=== PATIENT | female | born 1960 | race Caucasian/White ===

== ENCOUNTER 2016-11-30 06:44 | Emergency (ER) ==
[2016-11-30 06:59] VITALS: BP 116/75
[2016-11-30] MEDS ORDERED: TORADOL IM ONE (07:11)
[2016-11-30] MEDS ORDERED: ZOFRAN ODT PO ONE (09:06)
[2016-11-30] MEDS ORDERED: DECADRON IM ONE (09:06)
[2016-11-30] MEDS ORDERED: PERCOCET-10 PO ONE (09:06)
--- NOTE | 2016-11-30 09:07 | PROVIDER DOCUMENTATION ---
HPI-Musculoskeletal Pain/Inj - GENERAL Chief Complaint: Back Pain Stated Complaint: LOWER BACK PAIN Time Seen by Provider: 11/30/16 07:03 Source: patient - HX OF PRESENT ILLNESS-MUSKULOSKELTAL Nature of Presenting Problem: Pt is 56 y/o F presents to the ED with lumbar back pain. Pt states being diagnosed with chronic back pain 7 years ago but today it is worse. Pt denies injury. Pt denies F/C. Quality of Pain: reports: aching Severity in ED: moderate Onset/Duration: this morning Timing: still present, constant, getting worse Modifying Factors: improves with: nothing Any recent injury?: No Locality of Occurance: Home Similar Symptoms Previously?: Yes Recently seen or treated by another doctor?: Yes - FALL INJURY Location of Pain/Injury: reports: none Symptoms prior to fall:: reports: none Loss of Consciousness: no loss of consciousness Injury Associated Symptoms: reports: back/neck pain (back). denies: arm pain, chest pain, diaphoresis, dizziness, headaches, joint pain, muscle aches, nausea , puncture wound, shortness of breath, sensory/motor loss, snap/crack/pop sensation, pain with inspiration, unable to bear weight, vomiting, weakness, trouble walking - BACK & NECK PAIN/INJURY Back/Neck Pain Location: reports: lumbar spine Back/Neck Pain Radiation: reports: Buttocks, Upper Legs Context / Method of Injury: reports: other (chronic back pain) Associated Symptoms: reports: lower back pain, muscle spasms (Lumbar). denies: loss of bladder control, loss of bowel control, fever, numbness in legs/feet, numbness in upper ext, sensory/motor loss, tingling in legs/feet, tingling in upper ext, weakness in legs/feet, weakness in upper ext History of Chronic Neck or Back Pain?: Yes (7 years ) - LOWER EXTREMITY PAIN/INJURY Lower Extremities Pain: thigh: bilateral (pain) Context / Method of Injury: reports: other (chronic pain) Associated Symptoms: reports: lower back pain, muscle spasms. denies: loss of bladder control, loss of bowel control, numbness in legs/feet, sensory/motor loss, tingling in legs/feet, weakness in legs/feet Review of Systems - Adult - REVIEW OF SYSTEMS - ADULT Constitutional: denies: chills, fever Eyes: denies: blurred vision, double vision Ears, Nose, Mouth & Throat: denies: ear pain, nose pain, throat pain Cardiovascular: denies: chest pain, heart murmur, irregular heart rate Respiratory: denies: cough, shortness of breath, wheezing Gastrointestinal: denies: abdominal pain, diarrhea, nausea, poor appetite, vomiting Genitourinary: denies: dysuria, hematuria Musculoskeletal: reports: back pain. denies: bone pain, joint pain, neck pain Integumentary: denies: hives, itching Neurological: denies: dizziness/vertigo, headache/migraines Psychiatric: reports: no symptoms reported Endocrine: reports: no symptoms reported Hematologic/Lymphatic: reports: no symptoms reported Allergic/Immunologic: reports: no symptoms reported All Other Systems: Reviewed and Negative Past History - Adult - PAST MEDICAL HISTORY-ADULT Review of Records: reports: Nursing Assessment Review, Medications Reviewed, Social history reviewed & non-contributory. Major Childhood Illnesses: reports: denies history Cardiovascular: reports: angina, HTN, hyperlipidemia Respiratory: reports: COPD, sleep apnea Gastrointestinal: reports: GERD Obstetrical/Gynecological: reports: denies history Genitourinary: reports: denies history Musculoskeletal: reports: denies history Neurological: reports: denies history Psychiatric: reports: anxiety Endocrine/Immune: reports: denies history Other Conditions: reports: denies history - PRIOR SURGERIES/PROCEDURES Surgical/Procedure History: reports: cholecystectomy, tonsillectomy - PRIOR HOSPITALIZATIONS Prior Hospitalizations: reports: for similar symptoms - FAMILY HISTORY Family History: reviewed, not pertinent - SOCIAL HISTORY Smoking: denies Substance Use: alcohol Alcohol Use Frequency: rarely Number of drinks per typical drinking period:: 3-4 drinks Living Situation: family Physical Exam-Injury Related - Physical Exam-Injury Related General Appearance: alert, no apparent distress. negative: appears well (ill appearance) Eyes: PERRL/EOMI, pink conjunctivae Head, Ears, Nose, Mouth & Throat: normocephalic/atraumatic, normal ENT inspection, TMs normal, pharynx normal Neck: non-tender, full range of motion, supple, normal inspection Respiratory: chest non-tender, lungs clear, normal breath sounds, no pleuratic chest pain, no respiratory distress, no accessory muscle use Cardiovascular: normal peripheral pulses, regular rate, rhythm, no edema, no gallop, no JVD, no murmur Abdominal Exam: normal bowel sounds, non tender, soft, no organomegaly, no pulsatile mass Lymphatic: no adenopathy Back Exam: no CVA tenderness, no vertebral tenderness, decreased range of motion , muscle spasm (lumbar) Extremity: normal range of motion, non-tender, normal gait, normal inspection, no pedal edema, no calf tenderness, normal capillary refill, pelvis stable Integumentary: normal color, warm/dry Neurologic: superintendent maintenance II-XII nml as tested, grossly normal, no motor/sensory deficits Psych/Mental Status: AL, normal mood/affect, normal thought content, normal thought process, oriented x 3 Progress - PLAN OF CARE/RESULTS Progress/Plan/Lab Results: Orders Category Date Time Status CHEST-2 VIEWS [RAD] Stat Exams 11/30/16 07:11 Taken LUMBAR SPINE [RAD] Stat Exams 11/30/16 07:10 Taken URINALYSIS [URINALYSIS] Stat Lab 11/30/16 09:09 Ordered URINE DRUG SCREEN Stat Lab 11/30/16 09:09 Ordered Dexamethasone [Decadron] Med 11/30/16 09:06 Discontinued 10 mg IM NOW ONE Ketorolac [Toradol] Med 11/30/16 07:11 Discontinued 60 mg IM NOW ONE Ondansetron Odt [Zofran Odt] Med 11/30/16 09:06 Discontinued 4 mg PO NOW ONE Oxycodone/APAP 10 mg/325 mg [Percocet-10] Med 11/30/16 09:06 Discontinued 1 each PO NOW ONE Vital Signs - 24 hr 11/30/16 06:57 Temperature 97.3 F L Pulse Rate 75 Respiratory 12 Rate Blood Pressure 116/75 O2 Sat by Pulse 100 Oximetry - XRAY 1 XRAY: Bilateral XRAY Study: Chest Impression: Normal XRAY Interpretation: stable 2 XRAY: Bilateral XRAY Study: Lumbar Spine Impression: Normal XRAY Interpretation: NAD Departure - Departure Time of Disposition Order: 09:11 DIAGNOSIS: Acute back pain Qualifiers: Back pain location: low back pain Back pain laterality: midline Sciatica presence: without sciatica Qualified Code(s): M54.5 - Low back pain Lumbar strain Qualifiers: Encounter type: initial encounter Qualified Code(s): S39.012A - Strain of muscle, fascia and tendon of lower back, initial encounter Disposition: HOME 01 Certified Medical Emergency: Emergent Condition: Stable Additional Instructions: ED Follow Up Instructions: You have been treated by a care provider in the Emergency Department. These instructions are being provided to you so you can have an understanding of how to care for yourself upon discharge. Upon discharge from the Emergency Department, you are responsible for making arrangements for follow-up care by a physician of your choice. Take all prescribed medications as directed. Return to the Emergency Department immediately for any new or worsening symptoms. You may call the Physician Referral phone number at [phone] to obtain a list of Physicians who are taking new patients. Prescriptions: Oxycodone HCl/Acetaminophen [Percocet 7.5-325 mg Tablet] 1 each PO TID PRN PRN # 20 tablet PRN Reason: Pain Methocarbamol [Robaxin-750] 750 mg PO TID #30 tablet Tramadol [Ultram] 50 mg PO TID PRN PRN #60 tablet PRN Reason: Pain Ondansetron [Zofran Odt] 4 mg SL 4XDAY PRN PRN #14 tab.rapdis PRN Reason: Nausea And Vomiting Referrals: Devin Singleton MD [Primary Care Provider] - Justina Alexis MD [STAFF PHYSICIAN] - Forms: Return to School/Parent Work Attestation - Scribe Verification/Attestation Scribe:: Shaina Harkins Acting as Scribe for:: Hilario Carver Scribe documention review:: This chart was documented by a scribe and accurately reflects the service the provider performed and the decisions made by the provider.
[2016-11-30 09:15] LABS: URINE MICRO REVIEW NEEDED? NO; URINE SOURCE VOIDED
[2016-11-30 09:26] LABS: BILIRUBIN URINE NEGATIVE (NEGATIVE); BLOOD URINE NEGATIVE (NEGATIVE); COLOR YELLOW; GLUCOSE URINE NEGATIVE (NEGATIVE); LEUKOCYTES URINE NEGATIVE (NEGATIVE); NITRITE URINE NEGATIVE (NEGATIVE); PH URINE 5.5; PROTEIN URINE NEGATIVE (NEGATIVE); SP GRAVITY URINE 1.006; TURBIDITY URINE CLEAR (CLEAR); UROBILINOGEN URINE NORMAL (NORMAL)
[2016-11-30 09:27] LABS: UR EPITHELIAL CELLS <10 /HPF (<10); URINE BACTERIA NEGATIVE /HPF; URINE RBC <10 /HPF (<10); URINE WBC <10 /HPF (<10)
--- NOTE | 2016-11-30 09:28 | Diag Imaging Result Document ---
PROCEDURE NAME: LUMBAR SPINE - 11/30/2016 LUMBOSACRAL SPINE SERIES WITH OBLIQUES, SIX VIEWS: FINDINGS: The pedicles are intact. There are surgical clips in the gallbladder fossa. There is generalized osteopenia. There is no evidence of acute fracture or subluxation and the disc spaces are fairly well maintained. IMPRESSION: No evidence of acute bony disease.
[2016-11-30 09:32] LABS: UR AMPHETAMINES QUAL NONE DETECTED (NONE DETECT); UR BARBITUATES QUAL NONE DETECTED (NONE DETECT); UR BENZODIAZEPIN QUAL NONE DETECTED (NONE DETECT); UR CANNABINOIDS QUAL NONE DETECTED (NONE DETECT); UR COCAINE QUAL NONE DETECTED (NONE DETECT); UR METHADONE QUAL NONE DETECTED (NONE DETECT); UR OPIATES QUAL NONE DETECTED (NONE DETECT); UR OXYCODONE QUAL NONE DETECTED (NONE DETECT); UR PCP QUAL NONE DETECTED (NONE DETECT)
--- NOTE | 2016-11-30 10:27 | Diag Imaging Result Document ---
PROCEDURE NAME: CHEST-2 VIEWS - 11/30/2016 TWO VIEWS OF THE CHEST: FINDINGS: There is cardiomegaly. Compared to 09/09/2016, there has been no significant change in the appearance of the chest. IMPRESSION: Stable chest.
== END 2016-11-30 09:52 | disposition home or self-care (01) ==
LOC: ED 06:44
DX: S39.012A Strain of muscle, fascia and tendon of lower back, initial encounter (principal); M54.5 Low back pain; G89.29 Other chronic pain; M79.1 Myalgia; M79.605 Pain in left leg; M79.604 Pain in right leg; M62.830 Muscle spasm of back; I10 Essential (primary) hypertension; E78.5 Hyperlipidemia, unspecified; J44.9 Chronic obstructive pulmonary disease, unspecified; K21.9 Gastro-esophageal reflux disease without esophagitis; F41.9 Anxiety disorder, unspecified; Z79.899 Other long term (current) drug therapy; Z79.82 Long term (current) use of aspirin
CPT/HCPCS: 71020; 72110; 81001; 96372; G0480; J1885

== ENCOUNTER 2019-03-01 11:35 | Inpatient (IN) ==
[2019-03-01] MEDS ORDERED: NS 1,000 ML IV ONE (11:54)
[2019-03-01] MEDS ORDERED: VANCOMYCIN 1 GM/NS 1 GM/250 ML IVPB IV ONE (12:22)
[2019-03-01] MEDS ORDERED: ZOSYN 3.375 GM in NS 50 ML IV ONE (12:22)
[2019-03-01 12:29] LABS: ALLEN TEST NO; BE 2.7 mmoll (-3.0-3.0); BLOOD TYPE ARTERIAL; HCO3-(ACT) 26.9 mmoll (20.0-26.0); METHB 1.2 % (0.0-1.5); O2(CT) 18.1 mL/dL (15.0-23.0); O2HB 93.6 % (95.0-99.0); PCO2(98.6) 36 mmHg (35-45); PO2(98.6) 80 mmHg (60-100); SAMPLE BLOOD; SAO2 96.8 % (95.0-100.0); THB 13.7 g/dL (11.5-17.4); pH(98.6) 7.47 (7.35-7.45)
[2019-03-01 12:37] LABS: URINE SOURCE CATH
[2019-03-01 12:49] LABS: UR AMPHETAMINES QUAL NONE DETECTED (NONE DETECT); UR BARBITUATES QUAL NONE DETECTED (NONE DETECT); UR BENZODIAZEPIN QUAL NONE DETECTED (NONE DETECT); UR CANNABINOIDS QUAL NONE DETECTED (NONE DETECT); UR COCAINE QUAL NONE DETECTED (NONE DETECT); UR METHADONE QUAL NONE DETECTED (NONE DETECT); UR OPIATES QUAL NONE DETECTED (NONE DETECT); UR OXYCODONE QUAL NONE DETECTED (NONE DETECT); UR PCP QUAL NONE DETECTED (NONE DETECT)
[2019-03-01 12:52] LABS: BILIRUBIN URINE NEGATIVE (NEGATIVE); BLOOD URINE NEGATIVE (NEGATIVE); COLOR YELLOW; GLUCOSE URINE NEGATIVE (NEGATIVE); KETONE URINE 10 mg/dL (NEGATIVE); LEUKOCYTES URINE NEGATIVE (NEGATIVE); NITRITE URINE NEGATIVE (NEGATIVE); PH URINE 8.5; PROTEIN URINE TRACE mg/dL (NEGATIVE); SP GRAVITY URINE 1.011; TURBIDITY URINE CLEAR (CLEAR); UROBILINOGEN URINE NORMAL (NORMAL)
[2019-03-01 12:53] LABS: UR EPITHELIAL CELLS <10 /HPF (<10); URINE BACTERIA NEGATIVE /HPF; URINE RBC <10 /HPF (<10); URINE WBC <10 /HPF (<10)
[2019-03-01 12:57] LABS: AGAP 11; ALB/GLOB RATIO 1.8; ALBUMIN 4.1 g/dL (3.5-5.0); ALKALINE PHOSPHATASE 105 U/L (32-104); BUN 11 mg/dL (8-22); CALCIUM 8.9 mg/dL (8.8-10.2); CHLORIDE 96 mmol/L (98-107); COSMO 271; CREATININE 0.8 mg/dL (0.5-0.9); ESTIMATED GFR > 60; GLUCOSE 193 mg/dL (70-104); GOT 18 U/L (10-30); GPT 16 U/L (10-36); MAGNESIUM 1.7 mg/dL (1.5-2.7); SODIUM 133 mmol/L (136-145); TCO2 26 mmol/L (25-35); TOTAL BILIRUBIN 0.48 mg/dL (0.20-1.00); TOTAL PROTEIN 6.4 g/dL (6.3-8.3)
--- NOTE | 2019-03-01 12:57 | EKG Report ---
Test Performed on : 03/01/2019 11:46:27 AM Test Reason : CP Blood Pressure : / mmHG Vent. Rate : 101 BPM Atrial Rate : 101 BPM P-R Int : 152 ms QRS Dur : 070 ms QT Int : 354 ms P-R-T Axes : 049 023 035 degrees QTc Int : 459 ms Sinus tachycardia. Nonspecific ST and T wave abnormality Abnormal ECG When compared with ECG of 09-SEP-2016 07:10, T wave inversion now evident in Lateral leads Unconfirmed Result
[2019-03-01 13:02] LABS: BASO# 0.02 X1000 (0.0-0.2); BASO% 0.2 % (0.0-0.8); EOS# 0.03 X1000 (0.0-0.7); EOS% 0.2 % (0.0-10.0); HEMATOCRIT 39.4 % (37.0-47.0); HEMOGLOBIN 13.4 g/dL (12.0-16.0); IMM GRAN# 0.07 X1000 (0.0-0.04); IMM GRAN% 0.6 % (0.0-0.5); LYMPH# 1.07 X1000 (1.2-3.4); LYMPH% 8.5 % (20.5-51.1); MCH 32.1 PG (27-31); MCV 94.5 FL (81-99); MONO# 0.55 X1000 (0.11-0.59); MONO% 4.4 % (1.7-9.3); MPV 10.9 FL (7.4-10.4); NEUT# 10.82 X1000 (1.4-6.5); NEUT% 86.1 % (42.2-75.2); PLT 172 X1000 (130-400); RBC 4.17 XMIL (4.2-5.4); RDW 13.7 % (11.5-14.5); WBC 12.56 X1000 (4.8-10.8)
[2019-03-01 13:04] LABS: CK PROFILE 255 U/L (24-173)
[2019-03-01 13:14] LABS: INR 1.11; PROTIME 15.2 Seconds (11.0-16.0); PTT 27.6 Seconds (22.3-41.8)
--- NOTE | 2019-03-01 13:16 | Diag Imaging Result Doc PS360 ---
EXAM: CHEST-1 VIEW 03/01/2019 HISTORY: sob fever TECHNIQUE: AP portable at 1244 COMMENT: There is cardiomegaly. The inspiration is less optimal than on 04/19/2018. The possibility of atelectasis or pneumonia in the left lower lobe cannot be excluded. IMPRESSION: Cardiomegaly. Questionable left lower lobe opacity. Electronically signed by Bobby Bryson 03/01/2019 1:14 PM
[2019-03-01] MEDS ORDERED: LASIX IV ONE (13:17)
[2019-03-01 13:21] LABS: CK INDEX 1.1 (0.0-2.5); CK-MB 2.77 ng/mL (0.0-5.0)
[2019-03-01 13:23] LABS: LYMPHS 8 % (21-51); MONO 3 % (1-9); SEGS 89 % (42-75)
[2019-03-01 13:44] LABS: MODALITY CANNULA
--- NOTE | 2019-03-01 14:28 | Diag Imaging Result Doc PS360 ---
EXAM: CT ABD/PELVIS W/IV CONT ONLY 03/01/2019 HISTORY: abd pain TECHNIQUE: This exam was performed using automated exposure control, adjustment of mA or kV according to patient size, and/or use of iterative reconstruction technique. COMMENT: There is ill-defined opacity in the posterior costophrenic sulcus of the right lower lobe which was not present on 10/23/2014 and may represent atelectasis. The liver is hypodense suggesting fatty change as it was on the previous study. There has been cholecystectomy. There is no evidence of nephrolithiasis or hydronephrosis. The aorta is not distended. There are atherosclerotic calcifications in the aorta and also in the ostial portion of the left renal artery. The mesenteric and renal arteries are otherwise patent. The adrenal glands are not enlarged. The pancreas is normal in appearance. There is stool in the colon. The stomach and small bowel are not distended. Pelvis: The appendix is normal in appearance. There are no masses and there is no evidence of significant adenopathy. There are no abnormal fluid collections. There is a Perry catheter in the bladder. The regional skeleton appears to be intact. IMPRESSION: Mild constipation. Right lower lobe atelectasis. Hepatic steatosis. Electronically signed by Bobby Bryson 03/01/2019 2:25 PM
[2019-03-01] MEDS ORDERED: TYLENOL PO PRN (14:36)
[2019-03-01] MEDS ORDERED: VANCOMYCIN IV PER PHARMACY MISC SCH (14:36)
[2019-03-01] MEDS ORDERED: NS 1,000 ML IV SCH (14:36)
--- NOTE | 2019-03-01 14:40 | PROVIDER DOCUMENTATION ---
This chart was entered by Debbie Lombardo Scribe, acting as scribe for Rimma Carrillo CRNP. HPI-Respiratory General - General Chief Complaint: Altered Mental Status Stated Complaint: ams Time Seen by Provider: 03/01/19 11:41 Source: patient, family (at bedside), EMS (first response) Allergies/Adverse Reactions: Patient Allergies Allergy/AdvReac Type Severity Reaction Status Date / Time erythromycin base Allergy Severe RASH, SOB Verified 03/01/19 12:29 adhesive tape Allergy Unknown Verified 03/01/19 12:29 Home Medications: Home Medication List Medication Instructions Recorded Confirmed Last Taken Type Spironolactone 25 mg PO QAM 12/03/14 03/01/19 02/17/17 06:15 History Aspirin 81 mg PO QAM 08/20/15 03/01/19 02/17/17 06:15 History Carvedilol [Coreg] 12.5 mg PO BID 08/20/15 03/01/19 02/17/17 06:15 History Nitroglycerin [Nitroglycerin 0.4 mg SL DIRECTED PRN 08/20/15 03/01/19 Unknown History Lingual [place]] Multivit-Min/FA/Lycopen/Lutein 1 each PO QPM 02/15/17 03/01/19 02/16/17 18:00 History [Centrum Silver Tablet] Metolazone 5 mg PO DAILY PRN 04/19/18 03/01/19 Unknown History Magnesium 250 mg PO QPM 06/07/18 03/01/19 Unknown History Torsemide [Demadex] 40 mg PO BID 06/07/18 03/01/19 Unknown History Sertraline HCl [Zoloft] 100 mg PO DAILY 07/10/18 03/01/19 Unknown History Glipizide [Glipizide Xl] 5 mg PO QAM 03/01/19 03/01/19 Unknown History Lidocaine 5% Patch [Lidoderm] 1 ea TOP BID 03/01/19 03/01/19 Unknown History Potassium Chloride 10 meq PO EVERY OTHER DAY 03/01/19 03/01/19 Unknown History Rosuvastatin Calcium [Crestor] 40 mg PO QPM 03/01/19 03/01/19 Unknown History Tizanidine [Zanaflex] 4 mg PO Q8HR 03/01/19 03/01/19 Unknown History Trazodone [Desyrel] 300 mg PO QHS 03/01/19 03/01/19 Unknown History - History of Present Illness-Resp Nature of Presenting Problem: 58 yof presents to the ed via ems per family calling 911. pt has been agitated with ams per family for 3 days. pt is currently on abx (Levaquin) for pneumonia. pt was given ketamine enroute by ems Quality of Pain: reports: none Severity in ED: reports: moderate Onset/Duration: reports: 3 days ago Timing: reports: still present, intermittent, getting worse Context: reports: other (recent pneumonia) Cough Quality/Degree: reports: no cough Current Respiratory Medication Therapy: Initiated see nurses note Modifying Factors: improves with: nothing, oxygen. worse with: exertion Associated Symptoms: reports: hyperventilating (24), shortness of breath. denies: chest pain/soreness, dizziness, fever/chills, wheezing Similar Symptoms Previously?: Yes Recently seen or treated by another doctor?: Yes (was recently d/c from hosp) Review of Systems - Adult - REVIEW OF SYSTEMS - ADULT ROS:: ROS per family Constitutional: denies: chills, fever Eyes: reports: no symptoms reported Ears, Nose, Mouth & Throat: reports: no symptoms reported Cardiovascular: denies: chest pain, palpitations, syncope Respiratory: reports: see HPI, shortness of breath. denies: wheezing Gastrointestinal: denies: abdominal pain, diarrhea, nausea, vomiting Genitourinary: reports: no symptoms reported Musculoskeletal: denies: back pain, neck pain Integumentary: reports: no symptoms reported Neurological: reports: no symptoms reported Psychiatric: reports: see HPI, other (has ams with family) Endocrine: reports: no symptoms reported Hematologic/Lymphatic: reports: no symptoms reported Allergic/Immunologic: reports: no symptoms reported All Other Systems: Reviewed and Negative Past History - Adult - PAST MEDICAL HISTORY-ADULT Review of Records: reports: Nursing Assessment Review, Medications Reviewed Major Childhood Illnesses: reports: denies history Cardiovascular: reports: angina, CHF, HTN, hyperlipidemia Respiratory: reports: COPD, pneumonia, sleep apnea Gastrointestinal: reports: GERD Obstetrical/Gynecological: reports: denies history Genitourinary: reports: denies history Musculoskeletal: reports: denies history Neurological: reports: denies history Psychiatric: reports: anxiety Endocrine/Immune: reports: denies history Other Conditions: reports: denies history - PRIOR SURGERIES/PROCEDURES Surgical/Procedure History: reports: cholecystectomy, tonsillectomy - PRIOR HOSPITALIZATIONS Prior Hospitalizations: reports: for similar symptoms - IMMUNIZATION STATUS Childhood Immunizations: See Nurse Assessment Flu Vaccine: See Nurse Assessment - FAMILY HISTORY Family History: reviewed, not pertinent - SOCIAL HISTORY Smoking: quit greater than 1 year Substance Use: denies Alcohol Use Frequency: never Living Situation: family Physical Exam-General - PHYSICAL EXAM-ADULT Exam Limited by: pt is ams and lethargic and can not answer questions Initial Vital Signs Reviewed: Yes - CONSTITUTIONAL General Appearance: no apparent distress, lethargic, slow to respond - EYES Eyes: pink conjunctivae - HEAD, EARS, NOSE, MOUTH & THROAT HENMT: moist mucous membranes, normal ENT inspection - NECK Neck: full range of motion, supple, normal inspection - RESPIRATORY Respiratory: chest non-tender, respiratory distress, decreased breath sounds, other (90% on 2LPM recent dx of pneumonia and on abx). negative: wheezing - CARDIOVASCULAR Cardiovascular: normal peripheral pulses, tachycardia (121) - GASTROINTESTINAL (ABDOMEN) Abdominal Exam: normal bowel sounds, non tender, soft - LYMPHATIC Lymphatic: no adenopathy - MUSCULOSKELETAL Back Exam: normal inspection Extremity: no calf tenderness, pelvis stable - SKIN Integumentary: warm/dry, pallor - PSYCHIATRIC Psych/Mental Status: disoriented x 3, other (lethargic) Progress - PLAN OF CARE/RESULTS Progress/Plan/Lab Results: Vital Signs - 8 hr 03/01/19 11:57 03/01/19 12:01 03/01/19 12:19 Temperature 101.2 F H Pulse Rate 100 H 101 H 103 H Respiratory Rate 20 23 28 H Blood Pressure 153/100 153/99 153/100 O2 Sat by Pulse Oximetry 95 95 91 L 03/01/19 12:31 03/01/19 13:01 03/01/19 13:31 Temperature Pulse Rate 95 H 105 H 104 H Respiratory Rate 21 28 H 28 H Blood Pressure 108/84 145/91 118/103 O2 Sat by Pulse Oximetry 96 97 96 03/01/19 13:48 Temperature Pulse Rate Respiratory Rate Blood Pressure O2 Sat by Pulse Oximetry 98 03/01/19 12:24 Influenza Screen - Final Nasopharyngeal Laboratory Results - last 24 hr 03/01/19 03/01/19 03/01/19 11:55 12:04 12:04 WBC 12.56 H RBC 4.17 L Hgb 13.4 Hct 39.4 MCV 94.5 MCH 32.1 H MCHC 34.0 RDW Std Deviation 13.7 Plt Count 172 MPV 10.9 H Immature Gran % (Auto) 0.6 H Neut % (Auto) 86.1 H Lymph % (Auto) 8.5 L Nance % (Auto) 4.4 Eos % (Auto) 0.2 Baso % (Auto) 0.2 Immature Gran # (Auto) 0.07 H Neut # (Auto) 10.82 H Lymph # (Auto) 1.07 L Nance # (Auto) 0.55 Eos # (Auto) 0.03 Baso # (Auto) 0.02 Segmented Neutrophils 89 H Lymphocytes 8 L Monocytes 3 PT INR PTT (Actin FS) Specimen Type Sample Site pH pCO2 pO2 HCO3 Base Excess Oxyhemoglobin ABG O2 Sat (Calculated) ABG O2 Saturation ABG Carboxyhemoglobin ABG Methemoglobin Juvenal Test A-a O2 Difference Total Hemoglobin Lactate Liter Flow Blood Gas Modality FiO2 % Sodium 133 L Potassium 4.0 Chloride 96 L Carbon Dioxide 26 Anion Gap 11 BUN 11 Creatinine 0.8 Estimated GFR/1.73 m2 > 60 BUN/Creatinine Ratio 14 Glucose 193 H POC Glucose 201 H Calculated Osmolality 271 Calcium 8.9 Magnesium 1.7 Total Bilirubin 0.48 AST 18 ALT 16 Alkaline Phosphatase 105 H Creatine Kinase 255 H Creatine Kinase Index 1.1 CK-MB (CK-2) 2.77 Troponin T Total Protein 6.4 Albumin 4.1 Globulin 2.3 Albumin/Globulin Ratio 1.8 Plasma Lactate Urine Source Urine Color Urine Turbidity Urine pH Ur Specific [place] Urine Protein Ur Glucose (Stick) Ur Ketones (Stick) Urine Blood Urine Nitrite Urine Bilirubin Urobilinogen Dipstick Urine Leukocytes Urine WBC (Auto) Urine RBC (Auto) U Epithel Cells (Auto) Urine Bacteria (Auto) Urine Opiates Screen Ur Oxycodone Screen Ur Methadone, Qual Ur Barbiturates Screen Ur Phencyclidine Scrn Ur Amphetamines Screen U Benzodiazepines Scrn Urine Cocaine Screen U Cannabinoids Screen 03/01/19 03/01/19 03/01/19 12:04 12:04 12:04 WBC RBC Hgb Hct MCV MCH MCHC RDW Std Deviation Plt Count MPV Immature Gran % (Auto) Neut % (Auto) Lymph % (Auto) Nance % (Auto) Eos % (Auto) Baso % (Auto) Immature Gran # (Auto) Neut # (Auto) Lymph # (Auto) Nance # (Auto) Eos # (Auto) Baso # (Auto) Segmented Neutrophils Lymphocytes Monocytes PT 15.2 INR 1.11 PTT (Actin FS) 27.6 Specimen Type Sample Site pH pCO2 pO2 HCO3 Base Excess Oxyhemoglobin ABG O2 Sat (Calculated) ABG O2 Saturation ABG Carboxyhemoglobin ABG Methemoglobin Juvenal Test A-a O2 Difference Total Hemoglobin Lactate Liter Flow Blood Gas Modality FiO2 % Sodium Potassium Chloride Carbon Dioxide Anion Gap BUN Creatinine Estimated GFR/1.73 m2 BUN/Creatinine Ratio Glucose POC Glucose Calculated Osmolality Calcium Magnesium Total Bilirubin AST ALT Alkaline Phosphatase Creatine Kinase Creatine Kinase Index CK-MB (CK-2) Troponin T < 0.010 Total Protein Albumin Globulin Albumin/Globulin Ratio Plasma Lactate 1.5 Urine Source Urine Color Urine Turbidity Urine pH Ur Specific [place] Urine Protein Ur Glucose (Stick) Ur Ketones (Stick) Urine Blood Urine Nitrite Urine Bilirubin Urobilinogen Dipstick Urine Leukocytes Urine WBC (Auto) Urine RBC (Auto) U Epithel Cells (Auto) Urine Bacteria (Auto) Urine Opiates Screen Ur Oxycodone Screen Ur Methadone, Qual Ur Barbiturates Screen Ur Phencyclidine Scrn Ur Amphetamines Screen U Benzodiazepines Scrn Urine Cocaine Screen U Cannabinoids Screen 03/01/19 03/01/19 03/01/19 12:05 12:13 12:13 WBC RBC Hgb Hct MCV MCH MCHC RDW Std Deviation Plt Count MPV Immature Gran % (Auto) Neut % (Auto) Lymph % (Auto) Nance % (Auto) Eos % (Auto) Baso % (Auto) Immature Gran # (Auto) Neut # (Auto) Lymph # (Auto) Nance # (Auto) Eos # (Auto) Baso # (Auto) Segmented Neutrophils Lymphocytes Monocytes PT INR PTT (Actin FS) Specimen Type ARTERIAL Sample Site R BRACHIAL pH 7.47 H pCO2 36 pO2 80 HCO3 26.9 H Base Excess 2.7 Oxyhemoglobin 93.6 L ABG O2 Sat (Calculated) 18.1 ABG O2 Saturation 96.8 ABG Carboxyhemoglobin 2.10 ABG Methemoglobin 1.2 Juvenal Test NO A-a O2 Difference 75.0 Total Hemoglobin 13.7 Lactate 1.10 Liter Flow 2.0 Blood Gas Modality CANNULA FiO2 % 28.0 Sodium Potassium Chloride Carbon Dioxide Anion Gap BUN Creatinine Estimated GFR/1.73 m2 BUN/Creatinine Ratio Glucose POC Glucose Calculated Osmolality Calcium Magnesium Total Bilirubin AST ALT Alkaline Phosphatase Creatine Kinase Creatine Kinase Index CK-MB (CK-2) Troponin T Total Protein Albumin Globulin Albumin/Globulin Ratio Plasma Lactate Urine Source CATH Urine Color YELLOW Urine Turbidity CLEAR Urine pH 8.5 Ur Specific [place] 1.011 Urine Protein TRACE A Ur Glucose (Stick) NEGATIVE Ur Ketones (Stick) 10 A Urine Blood NEGATIVE Urine Nitrite NEGATIVE Urine Bilirubin NEGATIVE Urobilinogen Dipstick NORMAL Urine Leukocytes NEGATIVE Urine WBC (Auto) <10 Urine RBC (Auto) <10 U Epithel Cells (Auto) <10 Urine Bacteria (Auto) NEGATIVE Urine Opiates Screen NONE DETECTED Ur Oxycodone Screen NONE DETECTED Ur Methadone, Qual NONE DETECTED Ur Barbiturates Screen NONE DETECTED Ur Phencyclidine Scrn NONE DETECTED Ur Amphetamines Screen NONE DETECTED U Benzodiazepines Scrn NONE DETECTED Urine Cocaine Screen NONE DETECTED U Cannabinoids Screen NONE DETECTED Orders Category Date Time Status Admit - [facility] Routine AdmDCTranf 03/01/19 14:36 Active Activity - Strict Bedrest ORDERED Care 03/01/19 14:36 Active Apply Mechanical Device [QM] ORDERED Care 03/01/19 14:36 Active Cardiac Monitoring DIRECTED Care 03/01/19 11:54 Completed Elevate Head of Bed DIRECTED Care 03/01/19 14:36 Active Encourage Fluids DIRECTED Care 03/01/19 14:36 Active Perry Cath Insertion ORDERED Care 03/01/19 12:43 Active IV Insertion ORDERED Care 03/01/19 11:54 Completed Intake and Output-Strict Q 8-HR ASSESS Care 03/01/19 14:36 Active Nursing- Assist w/ IS as order ORDERED Care 03/01/19 14:36 Active Nursing- Obtain EKG ONCE Care 03/01/19 11:57 Completed Turn, Cough and Deep Breathe Q2HR Care 03/01/19 14:36 Active Vital Signs Order Q 4-HR ASSESS Care 03/01/19 14:36 Active Z-Document. for Tele Applied ORDERED Care 03/01/19 14:36 Active NPO Diet 03/01/19 14:36 Active CHEST-1 VIEW [RAD] Stat Exams 03/01/19 11:[address] ABD/PELVIS W/IV CONT ONLY [CT] Stat Exams 03/01/19 13:34 Completed ABG [RESP] Routine Lab 03/01/19 12:05 Completed BASIC METABOLIC PANEL [CHEM] Routine Lab 03/02/19 06:00 Ordered BLOOD CULTURE [BLDCUL] Stat Lab 03/01/19 12:38 Received CBC WITH DIFF [HEME] Routine Lab 03/02/19 06:00 Ordered CBC WITH DIFF [HEME] Stat Lab 03/01/19 12:04 Completed CK PROFILE [SP CHEM] Stat Lab 03/01/19 12:04 Completed COMPREHENSIVE METABOLIC PANEL [CHEM] Stat Lab 03/01/19 12:04 Completed INFLUENZA SCREEN A/B Stat Lab 03/01/19 12:24 Completed LACTATE, PLASMA [CHEM] Lab 03/01/19 15:00 Uncollected LACTATE, PLASMA [CHEM] Lab 03/01/19 18:00 Uncollected LACTATE, PLASMA [CHEM] Q3H Lab 03/01/19 12:04 Completed MAGNESIUM [CHEM] Stat Lab 03/01/19 12:04 Completed PROTIME WITH INR [COAG] Stat Lab 03/01/19 12:04 Completed PTT [COAG] Stat Lab 03/01/19 12:04 Completed TROPONIN T Stat Lab 03/01/19 12:04 Completed URINALYSIS W/POSS RFLX CULT [URINALYSIS] Stat Lab 03/01/19 12:13 Completed URINE DRUG SCREEN Stat Lab 03/01/19 12:13 Completed 0.9% Sodium Chloride Inj [Ns] 1,000 ml Med 03/01/19 14:36 Ordered IV 75 mls/hr 0.9% Sodium Chloride Inj [Ns] 1,000 ml Med 03/01/19 11:54 Discontinued IV 999 mls/hr Acetaminophen [Tylenol] Med 03/01/19 14:36 Ordered 650 mg PO Q4H PRN PRN Albuterol 2.5MG/Ipratrop 0.5MG [Duoneb (A & A)] Med 03/01/19 15:30 Ordered 3 ml INH RTQ4H Furosemide [Lasix] Med 03/01/19 13:17 Discontinued 40 mg IV NOW ONE Pharmacy Order [Vancomycin IV Per Pharmacy] Med 03/01/19 14:36 Ordered 1 each MISC DIRECTED Piperacillin/Tazobactam [Zosyn] 3.375 gm Med 03/01/19 12:22 Discontinued 0.9% Sodium Chloride Inj [Ns] 50 ml IV NOW Piperacillin/Tazobactam [Zosyn] 3.375 gm Med 03/01/19 14:36 Ordered 0.9% Sodium Chloride Inj [Ns] 50 ml IV Q6H Vancomycin 1 gm/Ns Med 03/01/19 12:22 Discontinued 1 gm in 250 ml IV NOW Aerosol Treatments Routine Oth 03/01/19 14:36 Active Aerosol Treatments Stat Oth 03/01/19 14:36 Active Incentive Spirometer Routine Oth 03/01/19 14:36 Active Oxygen Device Routine Oth 03/01/19 14:36 Active Oxygen Device Stat Oth 03/01/19 11:54 Completed Telemetry [OM.EQ] Routine Oth 03/01/19 14:36 Active EKG [EKG] Stat Ther 03/01/19 11:57 Draft Transfer/Admit Order [TRANSFER] Routine Transfer 03/01/19 14:00 Completed Result Diagrams: 03/01/19 12:04 03/01/19 12:04 - REASSESSMENT Reassessment #1 Time Reassessed: 12:17 Status: unchanged Reassessment #2 Time Reassessed: 12:50 (pt is more alert than on arrival. Made pt and spouse aware of probable admission) Reassessment #3 Time Reassessed: 13:34 (spouse states pt has hx of bowel blockages and has been holding her abd at times. Pt tender to right side of abdomen) - EKG 1 Time of EKG reading by physician:: 11:46 EKG Read and Signed by:: Grabiel Santos EKG Interpretation (*Must complete 3 of following elements*): Abnormal Rate: 101 Rhythm: sinus tachycardia Dora: normal QRS: normal MA Interval: normal Prior EKG Comparison: no prior EKG Comments: nonspecific ST and T wave abnormality - XRAY 1 XRAY Study: Chest Impression: See EMR Report ( There is cardiomegaly. The inspiration is less optimal than on 04/19/2018. The possibility of atelectasis or pneumonia in the left lower lobe cannot be excluded. IMPRESSION: Cardiomegaly. Questionable left lower lobe opacity. Electronically signed by Bobby Bryson 03/01/2019 1:14 PM) - CT/MRI 1 CT Study: Abdomen, Pelvis Impression: See EMR Report (EXAM: CT ABD/PELVIS W/IV CONT ONLY 03/01/2019 HISTORY: abd pain TECHNIQUE: This exam was performed using automated exposure control, adjustment of mA or kV according to patient size, and/or use of iterative reconstruction technique. COMMENT: There is ill-defined opacity in the posterior costophrenic sulcus of the right lower lobe which was not present on 10/23/2014 and may represent atelectasis. The liver is hypodense suggesting fatty change as it was on the previous study. There has been cholecystectomy. There is no evidence of nephrolithiasis or hydronephrosis. The aorta is not distended. There are atherosclerotic calcifications in the aorta and also in the ostial portion of the left renal artery. The mesenteric and renal arteries are otherwise patent. The adrenal glands are not enlarged. The pancreas is normal in appearance. There is stool in the colon. The stomach and small bowel are not distended. Pelvis: The appendix is normal in appearance. There are no masses and there is no evidence of significant adenopathy. There are no abnormal fluid collections. There is a Perry catheter in the bladder. The regional skeleton appears to be intact. IMPRESSION: Mild constipation. Right lower lobe atelectasis. Hepatic steatosis. Electronically signed by Bobby Bryson 03/01/2019 2:25 PM 03/01/19 1425 Interpreting Physician: Bobby Bryson MD Dictated Date/Time: 03/01/19 1422 cc: Rimma Carrillo; None,PCP) - CONSULTS/PCP/HOSPITALIST Notification #1 *Consult/PCP/Hospitalist*: hospitalistDr Arechiga Time Discussed: 13:20 (spoke with JAIDEN Thomas hospitalist) Consult Disposition: Admit Departure - Departure Date of Disposition Decision: 03/01/19 Time of Disposition Decision: 13:31 DIAGNOSIS: Sepsis Qualifiers: Sepsis type: sepsis due to unspecified organism Qualified Code(s): A41.9 - Sepsis, unspecified organism Pneumonia Qualifiers: Pneumonia type: due to unspecified organism Laterality: left Lung location: lower lobe of lung Qualified Code(s): J18.1 - Lobar pneumonia, unspecified organism Disposition: ADMITTED INPATIENT 09 Certified Medical Emergency: Emergent Condition: Fair - Critical Care Note This patient required my direct & personal management of CC.: Yes Total Time (mins): 37 Critical Care Statement: This patient required my direct personal management to treat or rule out processes, the absence of which, could potentiallly result in sudden, clinically significant life or limb threatening deterioration. Attestation - Physician/ MARILUZ Attestation Patient care was provided by Advanced Practice Provider:: Yes Advanced Practice Provider:: Rimma Carrillo Advanced Practice Provider documentation review:: The Mid-level provider documentation, treatment plan and medical decision making was reviewed by the physician who agrees with all treatment and medical decision making by the MLP. The physician spent face to face time with patient:: No Advanced Practice Provider documentation review:: Supervising physician onsite and consulted in the evaluation and care of this patient. The physician did not have a face to face encounter with the patient. This chart was documented by the indicated scribe, (Debbie Lombardo Scribe) and accurately reflects the services I performed and decisions made by me, Rimma Carrillo CRNP, as attested by the provider's signature.
--- NOTE | 2019-03-01 14:59 | HISTORY AND PHYSICAL ---
PRIMARY CARE PHYSICIAN: Chloe in [place]. CHIEF COMPLAINT: Fever, chills, and altered mental status for 3 days. She has been on antibiotics for pneumonia for the past 2 weeks. HISTORY OF PRESENTING ILLNESS: This is a 58-year-old female who presents to [facility] via EMS with complaints per the family of fever, chills, and altered mental status for the last 3 days that had progressively worsened. States that she was being treated by her primary care physician for a pneumonia for the past 2 weeks. En route to the emergency room, EMS stated they had to give her ketamine to calm her down due to her agitation and altered mental status. At this time, she is lethargic and unable to answer any questions, but is at the bedside, and states she has been on Levaquin for the last 7 days and cefdinir. Her workup in the emergency room, on arrival, she had a temperature of 101.2 degrees with a pulse of 103, saturating 91% to 95% on room air, now saturating 98% on 2 L. White blood cell count was 12.56. Her chest x-ray showed cardiomegaly and a questionable left lower lobe opacity so she will be admitted for further evaluation and treatment. PAST MEDICAL HISTORY: 1. Congestive heart failure. 2. Hypertension. 3. Hyperlipidemia. 4. COPD. 5. Sleep apnea. PAST SURGICAL HISTORY: 1. Cholecystectomy. 2. Tonsillectomy. FAMILY HISTORY: Reviewed and noncontributory. SOCIAL HISTORY: She currently lives with family. Denies any tobacco, alcohol or illicit drug use. ALLERGIES: 1. Erythromycin base. 2. Adhesive tape. HOME MEDICATIONS: 1. Aspirin 81 mg p.o. in the morning. 2. Coreg 12.5 mg p.o. b.i.d. 3. Glipizide 5 mg p.o. in the morning. 4. Lidocaine patch 1 topically b.i.d. 5. Magnesium 250 mg p.o. at bedtime. 6. Metolazone 5 mg p.o. daily p.r.n. 7. Centrum multivitamin 1 p.o. at bedtime. 8. Nitroglycerin spray 0.4 mg sublingually as directed p.r.n. 9. Potassium 10 mEq p.o. every other day. 10. Crestor 40 mg p.o. at bedtime. 11. Zoloft 100 mg p.o. daily. 12. Spironolactone 25 mg p.o. in the morning. 13. Zanaflex 4 mg p.o. q.8 hours. 14. Demadex 40 mg p.o. b.i.d. 15. Trazodone 300 mg p.o. at bedtime. LABORATORY DATA: White blood cell count of 12.56, hemoglobin 13.4, hematocrit 39.4, and platelets 172,000. PT and INR of 15.2 and 1.11. ABG with a pH of 7.47, pCO2 36, PO2 of 80, bicarbonate 26.9, and that was on 2 L via nasal cannula. Sodium 133, potassium 4, chloride 96, CO2 26, BUN of 11, creatinine 0.8, glucose of 193, magnesium 1.7. Creatine kinase of 255, CK- MB of 2.77 with troponin of less than 0.010. Plasma lactate of 1.5. Urinalysis was negative. Urine drug screen was negative. Chest x-ray showed cardiomegaly and a questionable left lower lobe opacity. EKG showed sinus tachycardia at 101. REVIEW OF SYSTEMS: Unable to obtain from patient. Family at bedside states she has had fever, chills, and confusion. PHYSICAL EXAMINATION: VITAL SIGNS: On arrival, she had a temperature of 101.2 degrees, pulse 103, respirations 28, blood pressure 153/100, saturating 91% to 95% on room air, currently saturating 98% on 2 L. GENERAL: This is a 58-year-old female who is lying in the bed, unable to answer questions due to lethargy. Family at bedside to give information along with ER medical record. HEENT: Normocephalic and atraumatic. Normal ENT inspection. Oropharynx and nares are clear. EYES: Pupils are equal, round, and reactive to light and accommodation. Extraocular movements are intact. NECK: Normal inspection. Normal range of motion. LUNGS: Clear to auscultation bilaterally with equal lung expansion and chest wall movement. Lungs with decreased breath sounds bilaterally posteriorly. Equal lung expansion. Chest wall movement noted. HEART: Regular rate and rhythm. She did have some tachycardia on arrival. No murmurs, rubs, or gallops. ABDOMEN: Soft, nontender, and nondistended. Bowel sounds are present x4 quadrants. MUSCULOSKELETAL: Unable to assess due to her lethargy. NEUROLOGICAL: Unable to assess due to her lethargy. ASSESSMENT: 1. Sepsis. 2. Left lower lobe pneumonia. 3. Altered mental status. 4. History of hypertension. PLAN: She will be admitted to the medical unit, placed on telemetry, O2 per protocol. NPO at this time. She has a CT of the abdomen and pelvis that is pending. Place her on DuoNeb q.4 hours, vancomycin per pharmacy protocol, Zosyn 3.375 g IV q.6 hours, DuoNeb q.4 hours. We will recheck a CBC and BMP in the morning. She has an indwelling Perry catheter. We will hold all of her home medications at this time, hopefully to restart in the morning if her mental status improves. Further orders after being seen by attending. Dictated by DEJON Izquierdo for Joseph Cantor MD cc: DEJON Izquierdo MD [facility]
[2019-03-01] MEDS: ZOSYN 3.375 GM in NS 50 ML IV SCH ×2 (15:57→22:43)
[2019-03-01] MEDS: OFIRMEV 1000 MG/ISOTONIC SOLN 1,000 MG/100 ML BOTTLE IV PRN ×2 (16:05→22:43)
[2019-03-01] MEDS: DUONEB (A & A) INH SCH ×3 (16:53→23:41)
[2019-03-01] MEDS ORDERED: VANCOMYCIN 2,500 MG in NS 500 ML IV ONE (17:00)
[2019-03-01] MEDS ORDERED: NS 250 ML IV SCH (19:00)
--- NOTE | 2019-03-01 20:26 | Diag Imaging Result Doc PS360 ---
EXAM: CT HEAD W/O CONTRAST 03/01/2019 HISTORY: headaches TECHNIQUE: This exam was performed using automated exposure control, adjustment of mA or kV according to patient size, and/or use of iterative reconstruction technique. COMMENT: There is no evidence of mass effect, bleed, or abnormal extra-axial fluid collection. The paranasal sinuses are clear. The calvarium is intact. IMPRESSION: No evidence of acute intracranial disease. Electronically signed by Bobby Bryson 03/01/2019 8:24 PM
[2019-03-01] MEDS ORDERED: TORADOL IV ONE (21:14)
[2019-03-01] MEDS: NS 1,000 ML IV SCH (22:44)
[2019-03-01] MEDS: ZANAFLEX PO SCH (22:53)
[2019-03-01] MEDS: DESYREL PO SCH (22:53)
[2019-03-02] MEDS: ZOSYN 3.375 GM in NS 50 ML IV SCH ×3 (01:58→14:47)
[2019-03-02] MEDS: CENTRUM SILVER PO SCH ×2 (02:00→20:21)
[2019-03-02] MEDS: CRESTOR PO SCH ×2 (02:00→20:13)
[2019-03-02] MEDS: MAGNESIUM GLUCONATE PO SCH ×2 (02:01→20:12)
[2019-03-02] MEDS: DUONEB (A & A) INH SCH ×6 (03:26→22:59)
[2019-03-02] MEDS: OFIRMEV 1000 MG/ISOTONIC SOLN 1,000 MG/100 ML BOTTLE IV PRN (04:05)
[2019-03-02] MEDS ORDERED: ZOFRAN IV PRN (05:04)
[2019-03-02] MEDS: ZANAFLEX PO SCH ×3 (06:03→23:05)
[2019-03-02 06:06] LABS: BASO# 0.03 X1000 (0.0-0.2); BASO% 0.3 % (0.0-0.8); EOS# 0.01 X1000 (0.0-0.7); EOS% 0.1 % (0.0-10.0); HEMATOCRIT 39.1 % (37.0-47.0); HEMOGLOBIN 13.1 g/dL (12.0-16.0); IMM GRAN# 0.05 X1000 (0.0-0.04); IMM GRAN% 0.5 % (0.0-0.5); LYMPH% 12.8 % (20.5-51.1); MCH 32.8 PG (27-31); MCHC 33.5 g/dL (33-37); MCV 97.8 FL (81-99); MONO# 0.81 X1000 (0.11-0.59); MONO% 8.6 % (1.7-9.3); MPV 10.6 FL (7.4-10.4); NEUT# 7.31 X1000 (1.4-6.5); NEUT% 77.7 % (42.2-75.2); PLT 149 X1000 (130-400); RDW 14.1 % (11.5-14.5); WBC 9.41 X1000 (4.8-10.8)
[2019-03-02] MEDS ORDERED: FIORICET PO ONE (06:17)
[2019-03-02] MEDS ORDERED: OXY IR PO ONE (06:17)
[2019-03-02 06:34] LABS: AGAP 15; BUN 10 mg/dL (8-22); CALCIUM 8.3 mg/dL (8.8-10.2); CHLORIDE 97 mmol/L (98-107); COSMO 267; CREATININE 0.9 mg/dL (0.5-0.9); ESTIMATED GFR > 60; GLUCOSE 156 mg/dL (70-104); POTASSIUM 3.7 mmol/L (3.5-5.1); SODIUM 132 mmol/L (136-145); TCO2 20 mmol/L (25-35)
[2019-03-02] MEDS: NS 1,000 ML IV SCH ×2 (07:16→17:57)
[2019-03-02] MEDS: FIORICET PO PRN ×2 (08:33→12:09)
[2019-03-02] MEDS: COREG PO SCH ×2 (08:34→20:10)
[2019-03-02] MEDS: ZOLOFT PO SCH (08:34)
[2019-03-02] MEDS: ASPIRIN PO SCH (08:34)
[2019-03-02] MEDS: ZOFRAN IV PRN (13:30)
[2019-03-02] MEDS: MORPHINE IV PRN ×2 (16:29→20:52)
[2019-03-02] MEDS: ROCEPHIN 2 GM in NS 50 ML IV SCH (17:12)
--- NOTE | 2019-03-02 17:19 | PROGRESS NOTE ---
DATE: 03/02/2019 SUBJECTIVE: This morning Ms. Michael refers to be hurting, especially her head. According to her she has been having this upper respiratory tract infection for about 2 weeks. Has been on Omnicef and Levaquin 2 times for the past 2 weeks; however, on - that is about 3 days ago - even on the antibiotics, she continued to spike high temperatures, chills, headaches, so she called her primary care doctor, and she was asked to come to the emergency department. This morning she continues to be hurting. OBJECTIVE: Vitals: Blood pressure is 103/51, pulse is 56, respirations are 18, temperature is 98. Of note, Ms. Michael had a temperature of 103.6 degrees at some point yesterday, and she did run quite a few high temperatures yesterday. General: Ms. Michael is morbidly obese. BMI 36.3. Neck: She has a very short neck. Seems to have some rigidity on neck movement. Chest: Clear to auscultation. Did not hear any crepitations or rhonchi. Cardiovascular: Regular rate and rhythm. No murmurs, no rubs, no gallops. Abdomen: Soft, nontender. Bowel sounds are present. Slightly hypoactive. Extremities: No pedal edema. 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 Has the eyes closed, not sure if because the light bothers her. When I did ask, she said, "On and off." LABORATORY DATA: WBC is down to 9.41, hemoglobin is 13.1, platelet count is 149. Chemistry is also reviewed. Sodium is 135. Rest of chemistry is unremarkable. Plasma lactate is 3.0. CURRENT MEDICATIONS: Have all been reviewed. She is on vancomycin, and she is also getting Zosyn. IMAGING STUDIES: A CT scan of the head was unremarkable. A CT scan of the abdomen and pelvis only showed mild constipation, right lower lobe atelectasis and hepatic steatosis. A chest x-ray showed cardiomegaly, questionable left lower lobe opacity. ASSESSMENT: 1. Sepsis syndrome. Etiology is unclear; however, however, patient does have fever, altered mental status at home and some nuchal rigidity. I think the symptoms are highly suggestive of possible meningitis. A CT scan of the abdomen and a chest x-ray did not really show an obvious consolidation, so I think it is plausible to treat her for possible meningitis. I have changed her Zosyn to high-dose ceftriaxone. She is already on vancomycin, and I have added steroids. We will ask Interventional Radiology to do a lumbar puncture under fluoroscopy on this patient because she has had multiple injections and multiple procedures on her back. I think at this point at this point, she does have very distorted anatomy, and with the fact that she has a history of multilevel degenerative disc disease for which she follows up with Neurosurgery, I think this needs to be done under guidance. We will also send the fluid for analysis. I have also consulted Infectious Disease to guide us with the management. 2. Previously treated pneumonia and sinusitis. The CT scan of the abdomen and pelvis, which also takes the lower part of the lungs, does not show any consolidation. She probably had been well treated with the oral antibiotics; however, she continues to be septic looking, so we are going to treat her for possible meningitis. 3. Hypertension, currently stable. 4. History of chronic multilevel disc disease. Patient follows up with Neurosurgery in [place] and gets intermittent spinal steroid shots. 5. Lactic acidosis. Will continue with IV fluids. So, in general we will treat Ms. Michael for suspicion of meningitis, either viral or bacterial. She is currently on a meningitis dose of ceftriaxone and vancomycin, and I have added steroids. We will continue with the gentle IV hydration. We will ask Interventional Radiology for fluoroscopy-guided lumbar puncture. I have also consulted Infectious Disease. We will continue to control the headaches and the other symptoms. cc: Michael Quintanilla MD MTDD
[2019-03-02] MEDS: DECADRON IV SCH ×2 (17:53→23:05)
[2019-03-02] MEDS: VANCOMYCIN 2 GM in NS 500 ML IV SCH (17:56)
[2019-03-02] MEDS: DESYREL PO SCH (20:13)
[2019-03-02] MEDS ORDERED: CRESTOR PO SCH (21:00)
[2019-03-03] MEDS: ZOFRAN IV PRN (00:41)
[2019-03-03] MEDS: MORPHINE IV PRN ×2 (00:41→09:03)
[2019-03-03] MEDS: DUONEB (A & A) INH SCH ×6 (03:30→23:22)
[2019-03-03] MEDS: ZANAFLEX PO SCH ×3 (05:02→20:54)
[2019-03-03] MEDS: DECADRON IV SCH ×4 (05:02→22:57)
[2019-03-03 07:02] LABS: BASO# 0.01 X1000 (0.0-0.2); BASO% 0.1 % (0.0-0.8); HEMOGLOBIN 11.3 g/dL (12.0-16.0); IMM GRAN# 0.04 X1000 (0.0-0.04); IMM GRAN% 0.4 % (0.0-0.5); LYMPH# 0.91 X1000 (1.2-3.4); MCH 32.4 PG (27-31); MCHC 34.2 g/dL (33-37); MCV 94.6 FL (81-99); MONO# 0.74 X1000 (0.11-0.59); MONO% 7.3 % (1.7-9.3); NEUT% 83.2 % (42.2-75.2); PLT 139 X1000 (130-400); RBC 3.49 XMIL (4.2-5.4); RDW 13.8 % (11.5-14.5)
[2019-03-03 07:21] LABS: AGAP 12; ALB/GLOB RATIO 1.3; ALBUMIN 3.3 g/dL (3.5-5.0); ALKALINE PHOSPHATASE 71 U/L (32-104); BUN 11 mg/dL (8-22); CALCIUM 8.6 mg/dL (8.8-10.2); CHLORIDE 96 mmol/L (98-107); COSMO 262; CREATININE 0.6 mg/dL (0.5-0.9); ESTIMATED GFR > 60; GLUCOSE 170 mg/dL (70-104); GOT 49 U/L (10-30); GPT 29 U/L (10-36); SODIUM 129 mmol/L (136-145); TCO2 21 mmol/L (25-35); TOTAL BILIRUBIN 0.22 mg/dL (0.20-1.00); TOTAL PROTEIN 5.8 g/dL (6.3-8.3)
[2019-03-03] MEDS: ZOLOFT PO SCH (08:58)
[2019-03-03] MEDS: ASPIRIN PO SCH (08:58)
[2019-03-03] MEDS: MIRALAX PO SCH (09:07)
--- NOTE | 2019-03-03 11:45 | INFECTIOUS DISEASE CONSULT REP ---
DATE: 03/03/2019 CONCLUSION: The patient is admitted to the hospital with a febrile illness, headache, and an altered mental status. The exact cause of the illness is not certain to me at this time. There is some question on the CT scan and x-ray that there could be something in the left lower lobe such as an atelectasis or possibly pneumonia. I think ultimately that is what will be found, that the patient has pneumonia, causing her fever and headache. There is a question as to whether the patient has meningitis. At this time, she is fully alert. Her neck is supple. There is no pain when she bends her head forward or backward. I doubt that the patient has meningitis because I have never seen anybody with meningitis to clear up so rapidly as this patient did. The patient may have an immunoglobulin deficiency in view of her history of having recurrent sinusitis and pneumonia. Also, on physical exam, it appears to me that the patient has oral candidiasis. RECOMMENDATIONS: I agree with the current antibiotic regimen of vancomycin and Rocephin. I am going to go ahead and cancel the order for a lumbar puncture. I am also going to send the patient down to radiology now for a non-contrasted CT scan of the thorax, which now may show a definite pneumonia. I am also going to get immunoglobulin levels on the patient in view of her history of recurrent infections. Also, I have ordered Mycostatin swish and swallow for the patient's oral candidiasis. DISCUSSION: The patient tells me that for approximately 2 weeks ago, she started having a low- grade fever, the highest of which was 99. She also was coughing but did not bring up any sputum. She was short of breath. She was anorectic and when she came to the hospital, she appeared to have an altered mental status and a very severe headache. Studies thus far show a CBC. The patient's CBC initially was 12,560 and today it is 10,100. Hemoglobin is 11.3 and platelet count is 139,000. The patient's creatinine is 0.6. GFR is greater than 60. Liver function studies are normal except for an AST of 49, which most likely is due to the finding of hepatic steatosis on CT scan of the abdomen. The urinalysis was negative for white cells and bacteria. Drug screen was negative. Blood cultures and swab for influenza are negative. CT scan of the head showed no acute disease including no sinusitis. CT scan of the abdomen and pelvis showed some constipation and a right lower lobe atelectasis versus pneumonia and hepatic steatosis. Chest x-ray showed left lower lobe atelectasis versus pneumonia. 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 The patient has had a tonsillectomy, a herniorrhaphy, and a cholecystectomy. She has had a myocardial infarction and has had placement of a coronary artery stent. MEDICAL DISEASES: Positive for obesity, diabetes mellitus, hypertension, myocardial infarction, congestive heart failure, and hyperlipidemia. INFECTIOUS DISEASE HISTORY: Positive for pneumonia and sinusitis. FAMILY HISTORY: Positive for diabetes mellitus, hypertension, myocardial infarction, and cancer. SOCIAL HISTORY: [place] She is . She has a dog as a pet. She does not smoke cigarettes, drink alcoholic beverages, or abuse drugs. She is a retired dental assistant office manager. ALLERGIES: She is allergic to erythromycin drugs and adhesive tape. HOME MEDICATIONS: Include the following: Coreg, glipizide, lidocaine patch, metolazone, vitamins, nitroglycerin, potassium, Crestor, sertraline, spironolactone, Zanaflex, Demadex, and Desyrel. PHYSICAL EXAMINATION: Vital Signs: Temperature is 97.8 degrees, pulse 60, respirations 20, blood pressure 96/59, patient weighs 225 pounds. General: This is an obese, middle-aged female. She is in no acute distress. Head, Eyes, Ears, Nose, and Throat: She can hear my spoken words. She has white coating on her tongue. There is no drainage from her nose or ears. Neck: No meningismus. Lungs: Clear to auscultation. Cardiovascular: Heart rate is regular. Abdomen: Soft and nontender. Neurologic: The patient is alert. She can move her extremities. There is no tremor. Integument: No rash noted. Thank you for the consult. cc: Antonio Britt MD
[2019-03-03] MEDS ORDERED: MOTRIN PO ONE (13:16)
--- NOTE | 2019-03-03 13:50 | PROGRESS NOTE ---
DATE: 03/03/2019 SUBJECTIVE: Patient resting in bed. No new complaints today. OBJECTIVE: Vital signs: Temperature 102 degrees, respirations 20, blood pressure is 102/56, heart rate is 86, oxygen saturation 93%. HEENT: Atraumatic, normocephalic. Cardiovascular: S1, S2. Respiratory system: Has evidence of good air entry bilaterally. Abdomen: Soft, nontender. No masses felt. Extremities: No significant edema. Central nervous system: No obvious focal deficit noted. LABORATORIES: WBC is 10.10, hematocrit is 33, with a platelet count of 139,000. Sodium is 139, potassium 4, chloride 96, bicarb 21, BUN is 11, creatinine 0.6. Head CT unremarkable. ASSESSMENT AND PLAN: 1. Sepsis with primary source possibly being pneumonia. Maintain patient on intravenous fluids. Continue antibiotics. Await culture report. 2. Left lower lobe pneumonia. Continue antibiotics. Per recommendation of Infectious Disease. Follow up on cultures. 3. Hypertension. Blood pressure currently controlled. 4. Hyponatremia. Suspect syndrome of inappropriate antidiuretic hormone. Check urine electrolytes, including cultures as well as well as TSH level. 5. Anemia. Check iron studies along with a B12 as well as folate levels. cc: Joseph Cantor MD
[2019-03-03] MEDS: NS 1,000 ML IV SCH (14:49)
[2019-03-03] MEDS: MYCOSTATIN SUSP PO SCH ×3 (14:50→20:53)
--- NOTE | 2019-03-03 14:51 | Diag Imaging Result Doc PS360 ---
EXAM: CT THORAX W/O CONTRAST 03/03/2019 HISTORY: pneumonia TECHNIQUE: This exam was performed using automated exposure control, adjustment of mA or kV according to patient size, and/or use of iterative reconstruction technique. COMMENT: The current examination is compared with the previous study of 10/23/2014. There is dense calcification in the left anterior descending artery which is more extensive than on the previous examination. Some of this may be due to stenting. There are small bilateral pleural fluid collections. There is subcutaneous edema particularly in the left flank which was not present at the time the previous study and the pleural fluid collections were also not present previously. There is atelectasis and/or pneumonia in both lower lobes particularly the right lower lobe. This was not the case on the previous study. There are degenerative disc changes in the thoracic spine. There is no evidence of acute bony abnormality. IMPRESSION: Pleural effusions, basilar atelectasis versus pneumonia, coronary atherosclerotic calcification, and mild anasarca. Electronically signed by Bobby Bryson 03/03/2019 2:49 PM
[2019-03-03] MEDS: ROCEPHIN 2 GM in NS 50 ML IV SCH (16:23)
[2019-03-03 18:13] LABS: IRON SATURATION 18 %; TIBC 245 ug/dL; TOTAL IRON 43 ug/dL (49-151); UNBOUND IRON 202 ug/dL (112-346)
[2019-03-03 18:22] LABS: UR CREAT RANDOM 44.3 mg/dL (11-20); UR SODIUM < 10 mmoll
[2019-03-03] MEDS: VANCOMYCIN 2 GM in NS 500 ML IV SCH (18:28)
[2019-03-03 18:29] LABS: FERRITIN 275 ng/mL (13-150)
[2019-03-03] MEDS: LACTULOSE PO PRN (18:40)
[2019-03-03] MEDS: COREG PO SCH ×2 (18:52→20:54)
[2019-03-03] MEDS: MAGNESIUM GLUCONATE PO SCH (20:52)
[2019-03-03] MEDS: CRESTOR PO SCH (20:53)
[2019-03-03] MEDS: CENTRUM SILVER PO SCH (20:54)
[2019-03-03] MEDS: DESYREL PO SCH (20:54)
[2019-03-04] MEDS: NS 1,000 ML IV SCH (02:54)
[2019-03-04] MEDS: DUONEB (A & A) INH SCH ×6 (02:55→23:55)
[2019-03-04] MEDS: DECADRON IV SCH ×2 (03:53→09:49)
[2019-03-04] MEDS: ZANAFLEX PO SCH ×4 (03:53→21:20)
[2019-03-04 06:41] LABS: HEMOGLOBIN 12.4 g/dL (12.0-16.0); IMM GRAN# 0.03 X1000 (0.0-0.04); IMM GRAN% 0.3 % (0.0-0.5); LYMPH# 0.87 X1000 (1.2-3.4); LYMPH% 8.8 % (20.5-51.1); MCHC 33.5 g/dL (33-37); MCV 95.6 FL (81-99); MONO# 0.83 X1000 (0.11-0.59); MONO% 8.4 % (1.7-9.3); NEUT# 8.12 X1000 (1.4-6.5); NEUT% 82.5 % (42.2-75.2); PLT 127 X1000 (130-400); RBC 3.87 XMIL (4.2-5.4); RDW 13.7 % (11.5-14.5); WBC 9.85 X1000 (4.8-10.8)
[2019-03-04] MEDS: MIRALAX PO SCH (08:13)
[2019-03-04] MEDS: ASPIRIN PO SCH (08:13)
[2019-03-04] MEDS: MYCOSTATIN SUSP PO SCH ×4 (08:13→21:19)
[2019-03-04] MEDS: COREG PO SCH ×3 (08:13→23:08)
[2019-03-04] MEDS: ZOLOFT PO SCH (08:13)
[2019-03-04] MEDS: LACTULOSE PO PRN (09:45)
[2019-03-04] MEDS ORDERED: ZAROXOLYN PO PRN (11:10)
[2019-03-04] MEDS ORDERED: NS 1,000 ML IV SCH (11:10)
--- NOTE | 2019-03-04 11:37 | PROGRESS NOTE ---
DATE: 03/04/2019 SUBJECTIVE: The patient is resting comfortably in bed. OBJECTIVE: Vital signs: Temperature is 98.7 degrees, pulse 41, respirations 19, blood pressure 102/60, O2 saturation 97%. HEENT: Atraumatic, normocephalic. Cardiovascular: S1, S2. Respiratory system: Has evidence of good air entry bilaterally. Abdomen: Soft, nontender. No masses felt. Extremities: No evidence of significant edema. Central nervous system: No obvious focal deficits noted. LABORATORY DATA: WBC is 9.85, hematocrit is 37, with a platelet count of 127,000. TSH level is 0.09 and cortisol level is 2.0. ASSESSMENT AND PLAN: 1. Sepsis, primary source being pneumonia. Continue antibiotics. Follow up on culture report. 2. Left lower lobe pneumonia. Continue antibiotics per recommendation of Infectious Disease. 3. Hypertension. Continue current antihypertensive regimen. 4. Hyponatremia. Etiology multifactorial. The patient is currently on SSIR, Zoloft, which can cause hyponatremia. In addition, she is noted to have a low cortisol level. At this time, would consider changing Zoloft to a different antidepressant. In addition, will repeat cortisol level. If it remains persistently low, will need to get an ACTH stimulation test done. Also noted is a TSH level which is suppressed. I will repeat another TSH level and also get a free T4 level as well. I have noted urine chemistry. We will continue to follow up on her sodium level. 5. Anemia. Follow up on hemoglobin, hematocrit. Transfuse packed red blood cells if needed. 6. Headaches. The patient had a CT of the head done which is unremarkable. The patient has done well with Advil in the past. She got a dose of Advil yesterday and she feels better with it. Neurology has been consulted as well. 7. Deep vein thrombosis prophylaxis. Lovenox. 8. Gastrointestinal prophylaxis. Proton pump inhibitor. cc: Joseph Cantor MD
[2019-03-04] MEDS: ROCEPHIN 2 GM in NS 50 ML IV SCH (15:49)
--- NOTE | 2019-03-04 16:14 | INFECTIOUS DISEASE PROGRESS NO ---
DATE: 03/04/2019 PRESENT ILLNESS: The patient has a bibasilar pneumonia. Initially, it was thought she may have had a central nervous system infection, but I think that has been ruled out. MEDICATIONS: The patient is on Rocephin, Decadron, and vancomycin. PHYSICAL EXAMINATION: Vital Signs: Temperature is 97.9 degrees, pulse 96, respirations 20, blood pressure 126/76. General: This is an obese, middle-aged female. She is in no acute distress. Head, eyes, ears, nose, throat: She can hear my spoken words and see near objects. She does not have any white patches on her tongue. Neck: She can move her neck without pain. Lungs: Clear to auscultation. Cardiovascular: Regular heart rate. Abdomen: Soft and nontender. Neurologic: The patient is alert. She can move her extremities. There is no tremor. LAB AND X-RAY: CT scan of the chest showed bibasilar pneumonia. Blood cultures are negative. CBC shows a white count of 9,850, hemoglobin 12.4, and platelet count 127,000. ASSESSMENT AND PLAN: The patient has pneumonia. I do not think she has a central nervous system infection. My plan is to continue Rocephin but discontinue Decadron and vancomycin and hopefully tomorrow the patient will be able to go home on oral antibiotics. COMORBIDITIES: She is a diabetic. cc: Antonio Britt MD
--- NOTE | 2019-03-04 16:37 | CONSULTATION ---
DATE OF CONSULTATION: 03/04/2019 REASON FOR CONSULT: Headache. HISTORY OF PRESENT ILLNESS: This is a 58-year-old, right-handed female with a history of hypertension, hyperlipidemia, diabetes, who presented over the weekend with mental status changes. History is from the patient and her attentive . Apparently, she had been treated for pneumonia and maybe sinusitis for about 2 weeks before coming to the hospital. She was on Levaquin and Cefdinir, nearly finishing both of those. She felt reasonably okay on Monday but on , she woke up feeling pretty awful. She stayed in bed mostly, and had a high fever. She has had low-grade fevers in the couple of weeks prior to this. She was confused but initially refused to go to the emergency room. On Monday, she remained the same, therefore summoned EMS. The patient was agitated and was given ketamine to calm her down. She was subsequently sedated for some time. The patient reports her headache began on as her fever had climbed. It was gradual in onset. It felt like her past migraine headaches. She described it as holocephalic, as if a tight hat were on her head. She had nausea and sensitivity to both light and sound. She required some pain medication here initially in the hospital. She reports her headache has let up significantly and she is only taking some Advil occasionally for mild intermittent discomfort and that is helpful. She denies any neck stiffness or discomfort. She did have some vomiting while in the hospital but none recently. There was initial concern for meningitis, but that was later felt unlikely given how rapidly her mental status and headache resolved. I believe that was on Monday. Overall, her symptoms are essentially or nearly resolved. Her last fever was 99.9 degrees on 03/02/2019, and she has been afebrile since. There were no focal neurologic features. There was no report of seizure-like activity. PAST MEDICAL HISTORY: Includes 1. Heart failure. 2. Hypertension. 3. Hyperlipidemia. 4. NISA. 5. Diabetes with peripheral neuropathy. 6. Depression. 7. Cholecystectomy. 8. Tonsillectomy. 9. Coronary disease with GA and stent. 10. Ulcerative colitis. She reports she does not take medication for this because the medication actually causes flares. SOCIAL HISTORY: She denies tobacco, alcohol or illicits. She is on disability. She does not drive. She is and lives with her . FAMILY HISTORY: Noncontributory. ALLERGIES: Multiple allergies to medications, and food allergies. HOME MEDICATIONS: Reviewed in the chart. Include 1. Aspirin 81 mg. 2. Coreg. 3. Glipizide. 4. Lidocaine patch. 5. Magnesium. 6. Metolazone. 7. Multivitamin. 8. Potassium. 9. Zoloft. 10. Spironolactone. 11. Zanaflex. 12. Demadex. 13. Trazodone. REVIEW OF SYSTEMS: Balance of 12 was conducted and is otherwise negative except that detailed in the HPI. She had previously had fever, rigors, confusion and headache, but all of those have subsided. PHYSICAL EXAMINATION: Vital Signs: Temperature on arrival was 101.2. It subsequently was 103, but she has been afebrile in the last 48 hours. Blood pressure current 102 to 129 systolic over 60s to 70s diastolic. Neurologic: Ms. Michael is sitting up in bed, awake, alert, and oriented fully, attentive and appropriate. Follows all commands consistently, both simple and complex. No language disturbance. No dysarthria. Conversational and spontaneous. Pupils are equal, round, reactive to bright light. Gaze conjugate forward. Extraocular movements are full. Visual sanford intact to direct confrontational testing. Face symmetric with equal activation. Facial sensation reported intact. Tongue is midline. Palate elevates symmetrically. Shoulder shrug is full. No drift. Strength is symmetric and preserved in the arms and legs. There is symmetric sensation to light touch in the arms and legs. She has diminished reflexes at the knees and ankles bilaterally. No clonus. Plantar response is with excessive withdrawal but is downgoing. 1+ reflexes at the wrists. [id number], rapid alternating movements are preserved. I did not test her gait. DIAGNOSTICS: Head CT showed no acute findings. Normal white count. Sodium of 129. BUN and creatinine normal. Blood sugars 150s to 200. AST 49, ALT 29. Toxicology was negative. ASSESSMENT AND PLAN: Recent, transient global encephalopathy associated with fever and gradual onset headache. Quick resolution of symptoms is reassuring. She has been diagnosed with pneumonia and sepsis, and that is being managed by the primary team and Infectious disease. Afebrile status for 48h, normalized white count, nonfocal neurologic exam and essential resolution of symptoms as well as negative head CT, is reassuring. It is reasonable to continue treating her mild intermittent headache symptomatically. I will defer to primary and infectious disease regarding treatment of her infectious processes. Thank you for the consultation. cc: Holly Ornelas MD MTDD
[2019-03-04] MEDS: MAGNESIUM GLUCONATE PO SCH (21:19)
[2019-03-04] MEDS: DEMADEX PO SCH (21:20)
[2019-03-04] MEDS: CRESTOR PO SCH (21:20)
[2019-03-04] MEDS: DESYREL PO SCH (21:20)
[2019-03-04] MEDS: CENTRUM SILVER PO SCH (21:20)
[2019-03-05] MEDS: DUONEB (A & A) INH SCH ×3 (04:09→11:27)
[2019-03-05] MEDS: ZANAFLEX PO SCH ×2 (05:30→13:51)
[2019-03-05 06:55] LABS: BASO# 0.01 X1000 (0.0-0.2); BASO% 0.1 % (0.0-0.8); EOS# 0.02 X1000 (0.0-0.7); EOS% 0.2 % (0.0-10.0); HEMATOCRIT 35.7 % (37.0-47.0); HEMOGLOBIN 12.2 g/dL (12.0-16.0); IMM GRAN# 0.06 X1000 (0.0-0.04); IMM GRAN% 0.6 % (0.0-0.5); LYMPH% 14.4 % (20.5-51.1); MCH 32.1 PG (27-31); MCHC 34.2 g/dL (33-37); MCV 93.9 FL (81-99); MONO# 0.98 X1000 (0.11-0.59); MONO% 9.4 % (1.7-9.3); MPV 11.5 FL (7.4-10.4); NEUT# 7.84 X1000 (1.4-6.5); NEUT% 75.3 % (42.2-75.2); PLT 159 X1000 (130-400); RDW 13.7 % (11.5-14.5); WBC 10.41 X1000 (4.8-10.8)
[2019-03-05] MEDS ORDERED: PRILOSEC PO SCH (07:00)
[2019-03-05 07:41] LABS: AGAP 11; ALB/GLOB RATIO 1.8; ALBUMIN 3.4 g/dL (3.5-5.0); ALKALINE PHOSPHATASE 85 U/L (32-104); BUN 25 mg/dL (8-22); CALCIUM 8.9 mg/dL (8.8-10.2); CHLORIDE 100 mmol/L (98-107); COSMO 283; CREATININE 0.8 mg/dL (0.5-0.9); ESTIMATED GFR > 60; GLUCOSE 176 mg/dL (70-104); GOT 62 U/L (10-30); GPT 63 U/L (10-36); POTASSIUM 3.3 mmol/L (3.5-5.1); SODIUM 137 mmol/L (136-145); TCO2 26 mmol/L (25-35); TOTAL BILIRUBIN 0.18 mg/dL (0.20-1.00); TOTAL PROTEIN 5.3 g/dL (6.3-8.3)
[2019-03-05] MEDS ORDERED: EFFEXOR XR PO SCH (09:00)
[2019-03-05] MEDS ORDERED: ALDACTONE PO SCH (09:00)
[2019-03-05] MEDS ORDERED: LOVENOX SUBQ SCH (09:00)
[2019-03-05] MEDS: MYCOSTATIN SUSP PO SCH ×2 (10:33→13:51)
[2019-03-05] MEDS: DEMADEX PO SCH (10:37)
[2019-03-05] MEDS: ASPIRIN PO SCH (10:37)
[2019-03-05] MEDS: COREG PO SCH (10:38)
[2019-03-05] MEDS: MIRALAX PO SCH (10:53)
--- NOTE | 2019-03-05 10:59 | PROGRESS NOTE ---
DATE: 03/05/2019 SUBJECTIVE: Ms. Michael presented with headache and fever. She reports significant improvement and only minimal headache now. She is afebrile. Her systolic blood pressures are mid 90s and she reports that is baseline for her. Neurologic workup has been unremarkable. Dr. Ornelas saw her for initial Neurology evaluation yesterday. She seems to be recovering well. I do not have any new thoughts or new suggestion from Neurology and nothing to add to Dr. Ornelas's impression yesterday. Thanks for asking Neurology to see Ms. Michael. We will be glad to see her again as inpatient or as outpatient if headache recurs, or if she has new neurologic problem. cc: MD MANUEL Godinez III
[2019-03-05 11:31] VITALS: BP 93/51
[2019-03-05] MEDS ORDERED: PNEUMOVAX 23 IM ONE (14:11)
--- NOTE | 2019-03-05 15:33 | DISCHARGE SUMMARY ---
ADMISSION DATE: 03/01/2019 DISCHARGE DATE: 03/05/2019 CONSULTATIONS: 1. Dr. Holly Ornelas with Neurology. 2. Dr. Antonio Britt with Infectious Disease. PERTINENT PROCEDURES: 1. Abdomen and pelvis CT, mild constipation, right lower lobe atelectasis, and hepatic steatosis. 2. Head CT, no evidence of acute intracranial disease. 3. Follow-up chest CT, pleural effusion, bibasilar atelectasis versus pneumonia. Coronary atherosclerotic calcification and mild anasarca. DISCHARGE DIAGNOSES: 1. Bibasilar pneumonia. The patient was initially on Rocephin and vancomycin for possible central nervous system infection. However, she has been evaluated by Dr. Britt. He does not feel that this is the case. He continued her on IV Rocephin and discontinued her Decadron and vancomycin. She will go home on oral antibiotics. 2. Transient global encephalopathy associated with fever and gradual onset headache with quick resolution of symptoms. Again, she was diagnosed with pneumonia and sepsis. The head CTs have been negative. Neurology recommends treating her headaches symptomatically. 3. Sepsis secondary to pneumonia. 4. Hypertension. Continue home regimen. 5. Hyponatremia, multifactorial. The patient is on SSRI's with Zoloft. 6. Anemia. Hemoglobin and hematocrit remained stable. She did not require any blood transfusions. 7. Headache. Again, treat symptomatically per Neurology. HOSPITAL COURSE: Briefly, Ms. Michael is a 58-year-old female who carries a past medical history of diabetes mellitus, hypertension, and hyperlipidemia, who presented over the weekend to the ED with altered mental status changes. She had recently been treated for pneumonia and sinusitis 2 weeks prior. She did finish her full course dose of p.o. antibiotics at that time. She had started to feel okay, but then about 2 days later she started feeling bad again and was running fevers. She then became confused, and initially refused to come to the ED. However, she continued on Monday with the same symptoms. Her called EMS. She was agitated and given ketamine to calm her down, and was sedated for quite some time. She reported a headache that had began on as her fever climbed. She was found to be septic on presentation with a bibasilar pneumonia. She was followed by Infectious Disease, continued on appropriate antibiotics. Head CT was completely negative. She was followed by Neurology for her headache. She did have quick resolution of her symptoms and neurology's recommendation was to continue treating her intermittent headache symptomatically. Dr. Britt did not feel that she had a central nervous infection as well. He took her off her Decadron and vancomycin and treated her with a single agent with Rocephin, and will be transitioning her to oral antibiotics. Her altered mental status has resolved. She is back to her normal mentation. VITAL SIGNS: At time of discharge, temperature is 97.9 degrees, heart rate 59, respirations 16, blood pressure is 93/51, and O2 is 96 on room air. DISCHARGE DIET: Diabetic. DISCHARGE MEDICATIONS: 1. Desyrel 300 mg p.o. at bedtime. 2. Zanaflex 4 mg p.o. q.8 hours. 3. Aspirin 81 mg p.o. every morning. 4. Centrum Silver 1 each p.o. every evening. 5. Coreg 12.5 mg p.o. b.i.d. 6. Crestor 40 mg p.o. every evening. 7. Demadex 40 mg p.o. b.i.d. 8. Glipizide XL 5 mg p.o. every morning. 9. Lidoderm 1 each topical b.i.d. 10. Magnesium 250 mg p.o. every evening. 11. Metolazone 5 mg p.o. daily p.r.n. 12. Nitroglycerin spray 0.4 mg sublingual as directed p.r.n. 13. Potassium chloride 10 mEq p.o. every other day. 14. Spironolactone 25 mg p.o. every morning. 15. Zoloft 100 mg p.o. daily. 16. Augmentin 875 mg p.o. q.12 hours. 17. Azithromycin 250 mg p.o. daily. FOLLOWUP: Ms. Michael is being discharged back home with her and self- care. She is to take all medications as prescribed. She is to return to the ED or call 911 for any worsening of symptoms. Dictated by DEJON Orozco for Michael Quintanilla MD cc: MD Antonio Trevino MD I have seen and examined Ms Michael today. She is stable for discharge. Discharge instructions discussed with her. Home medications have been reconciled. I agree with the DS. Discharge time: 35 minutes MANUEL
[2019-03-06] MEDS ORDERED: KLOR-CON PO SCH (09:00)
== END 2019-03-05 14:51 | disposition home or self-care (01) | DRG 871 ==
LOC: SUPCPDRO → ED 11:35 → EDIPHOLD 14:32 → SUATTDRO 14:32 → 4N 16:28
PROVIDERS: ATTEND Internal Medicine
CPT/HCPCS: 70450; 71010; 71045; 71250; 74177; 80048; 80053; 80101; 80301; 80307; 80324; 80345; 80346; 80353; 80358; 80361; 80365; 81001; 82533; 82550; 82553; 82570; 82607; 82728; 82746; 82805; 82948; 83540; 83550; 83605; 83735; 83935; 83992; 84300; 84439; 84443; 84484; 85025; 85610; 85730; 87040; 87275; 87276; 87804; 90732; 93005; 94640; 94760; 94761; 94799; 96361; 96374; 96375; 97162; 97530; 99285; 99291; A9270; G0431; G0434; G0479; G0480; J0131; J0696; J1100; J1650; J1885; J2270; J2405; J2543; J3370; J7030; J7040; J7050; Q9967; XXXXX